=== PATIENT | male | born 1955 | race Caucasian/White ===

== ENCOUNTER 2021-09-03 11:10 | Day surgery (SDC) | payer BC, MEDICARE ==
[2021-09-01 13:56] VITALS: BMI 38.7
[2021-09-03] MEDS ORDERED: LACTATED RINGERS 1,000 ML IV SCH (11:24)
[2021-09-03 11:44] VITALS: TEMP 97.9
[2021-09-03 11:48] LABS: Glucose,Whole Blood 102 mg/dL (75-99)
[2021-09-03] MEDS ORDERED: PROPOFOL 10 MG/ML 20 ML VIAL IV ONE (12:09)
[2021-09-03 12:43] VITALS: RESP 18
--- NOTE | 2021-09-03 12:43 | PCN ---
PROCEDURE NOTE DATE OF SERVICE: 09/03/2021 PROCEDURE: Bone marrow aspirate and biopsy. INDICATION: Persistent monocytosis. PROCEDURE DESCRIPTION: After obtaining consent from the patient, the procedure was performed in the endoscopy suite under anesthesia performed by the anesthesia team. The patient put in left lateral decubitus position. The right posterior iliac crest was localized. Skin was cleansed with ChloraPrep. All sterile procedures were followed. Two mL of 2% Xylocaine was used for local anesthetic. Monoject needle was inserted Two mL of aspirate and about 1.5 cm core biopsy was obtained without any difficulties. Pressure was applied afterwards. There was negligible blood loss. Patient tolerated the procedure very well without any immediate complications. MMODL / IJN: [id number] /
[2021-09-03 12:49] VITALS: PULSE 84
[2021-09-03 12:50] VITALS: BP 110/72
[2021-09-03 13:52] LABS: Basophils # (A) 0.1 k/uL (0-0.2); Basophils % (A) 1 %; Eosinophils # (A) 0.3 k/uL (0-0.7); Eosinophils % (A) 4 %; HCT 45.8 % (39.0-53.0); HGB 15.8 gm/dL (13.0-17.5); Lymphocytes # (A) 2.7 k/uL (1.0-4.8); Lymphocytes % (A) 32 %; MCH 33.9 pg (25.0-35.0); MCHC 34.5 g/dL (31.0-37.0); MCV 98.4 fL (80.0-100.0); Mean Platelet Volume 8.3; Monocytes # (A) 0.6 k/uL (0-1.0); Monocytes % (A) 7 %; Neutrophils # (A) 4.7 k/uL (1.3-7.7); Neutrophils % (A) 54 %; Platelet Count 277 k/uL (150-450); RBC 4.66 m/uL (4.30-5.90); RDW 13.1 % (11.5-15.5); WBC 8.6 k/uL (3.8-10.6)
== END 2021-09-03 13:04 | disposition home or self-care (01) ==
LOC: OR 11:10
PROVIDERS: ATTEND Internal Medicine Hematology & Oncology
DX: D72.821 Monocytosis (symptomatic) (principal); E11.9 Type 2 diabetes mellitus without complications; E78.5 Hyperlipidemia, unspecified; I10 Essential (primary) hypertension; Z98.890 Other specified postprocedural states; K21.9 Gastro-esophageal reflux disease without esophagitis; Z80.1 Family history of malignant neoplasm of trachea, bronchus and lung; Z87.891 Personal history of nicotine dependence; G47.33 Obstructive sleep apnea (adult) (pediatric); Z97.2 Presence of dental prosthetic device (complete) (partial); Z79.899 Other long term (current) drug therapy; Z79.84 Long term (current) use of oral hypoglycemic drugs; Z79.82 Long term (current) use of aspirin
CPT/HCPCS: 85025; 85045; 38222; J2704

== ENCOUNTER 2021-11-08 07:24 | Observation (INO) | payer BC, MEDICARE ==
[2021-11-08] MEDS ORDERED: MECLIZINE 12.5 MG TAB PO STA (07:42)
[2021-11-08] MEDS ORDERED: METOCLOPRAMIDE 5 MG/ML 2 ML VIAL IVP STA (07:42)
--- NOTE | 2021-11-08 07:45 | ED ---
General Adult HPI - General Chief complaint: Dizziness Stated complaint: Dizziness Time Seen by Provider: 11/08/21 07:33 Source: patient, family, RN notes reviewed Mode of arrival: ambulatory Limitations: no limitations - History of Present Illness Initial comments: Patient is a pleasant 6 he 5-year-old male presenting to the emergency department with dizziness. Onset of symptoms was when he woke this morning. Symptoms were noticed when he sat up getting out of bed. Symptoms are worse with head movement and upright position. Symptoms improved with lying back and closing his eyes. Patient has had several episodes in the past, however not bad enough to see a doctor for. No confusion. No speech problems. No weakness. No sensory loss. - Related Data Home Medications Medication Instructions Recorded Confirmed Aspirin [[place] Aspirin EC] 81 mg PO DAILY 08/27/19 11/08/21 Atorvastatin [Lipitor] 20 mg PO HS 08/27/19 11/08/21 Dapagliflozin Propanediol [Farxiga] 10 mg PO DAILY 08/27/19 11/08/21 lisinopriL [Zestril] 10 mg PO HS 08/27/19 11/08/21 metFORMIN HCL [Glucophage] 1,000 mg PO BID 08/27/19 11/08/21 Liraglutide [Victoza 3-Jensen] 1.8 mg SQ HS 09/01/21 11/08/21 Cholecalciferol (Vitamin D3) 75 mcg PO DAILY 11/08/21 11/08/21 [Vitamin D3 (3000 Iu)] Ferrous Sulfate [Feosol] 325 mg PO DAILY 11/08/21 11/08/21 Vitamin B Complex 1 cap PO HS 11/08/21 11/08/21 Allergies Allergy/AdvReac Type Severity Reaction Status Date / Time No Known Allergies Allergy Verified 11/08/21 09:45 Review of Systems ROS Statement: Those systems with pertinent positive or pertinent negative responses have been documented in the HPI. ROS Other: All systems not noted in ROS Statement are negative. Constitutional: Denies: fever Eyes: Denies: eye pain ENT: Denies: ear pain Respiratory: Denies: cough Cardiovascular: Denies: chest pain Endocrine: Denies: fatigue Gastrointestinal: Denies: abdominal pain Genitourinary: Denies: dysuria Musculoskeletal: Denies: back pain Skin: Denies: rash Neurological: Reports: vertigo. Denies: headache, weakness, numbness, paresthesias, confusion Past Medical History Past Medical History: Diabetes Mellitus, Eye Disorder, GERD/Reflux, Hearing D isorder / Deafness, Hyperlipidemia, Hypertension, Sleep Apnea/CPAP/BIPAP Additional Past Medical History / Comment(s): glaucoma, NO C PAP History of Any Multi-Drug Resistant Organisms: None Reported Past Surgical History: Hernia Repair Additional Past Surgical History / Comment(s): COLONOSCOPY Past Anesthesia/Blood Transfusion Reactions: No Reported Reaction Past Psychological History: No Psychological Hx Reported Smoking Status: Former smoker Past Alcohol Use History: None Reported Past Drug Use History: None Reported - Past Family History Father Family Medical History: Cancer Additional Family Medical History / Comment(s): LUNG CANCER General Exam Limitations: no limitations General appearance: alert, in no apparent distress Head exam: Present: normocephalic Eye exam: Present: normal appearance, PERRL, EOMI. Absent: nystagmus ENT exam: Present: normal exam Neck exam: Present: normal inspection. Absent: tenderness Respiratory exam: Present: normal lung sounds bilaterally Cardiovascular Exam: Present: regular rate, normal rhythm GI/Abdominal exam: Present: soft. Absent: tenderness Extremities exam: Present: normal inspection. Absent: pedal edema Neurological exam: Present: alert, oriented X3, CN II-XII intact. Absent: motor sensory deficit Expanded Neurological exam: Present: protecting the airway Speech: Present: fluid speech Cranial nerves: EOM's Intact: Normal, Facial Sensation: Normal Sensory exam: Upper Extremity Light Touch: Normal, Lower Extremity Light Touch: Normal Motor strength exam: RUE: 5, LUE: 5, RLE: 5, LLE: 5 Eye Response: (4) open spontaneously Motor Response: (6) obeys commands Verbal Response: (5) oriented Psychiatric exam: Present: normal affect, normal mood Skin exam: Present: normal color Course Vital Signs 11/08/21 11/08/21 11/08/21 07:29 08:13 09:40 Temperature 97.5 F L Pulse Rate 78 77 77 Respiratory 18 16 18 Rate Blood Pressure 113/74 109/69 100/68 O2 Sat by Pulse 92 L 96 96 Oximetry 11/08/21 12:20 Temperature Pulse Rate 74 Respiratory 16 Rate Blood Pressure 111/75 O2 Sat by Pulse 97 Oximetry EKG Findings - EKG Comments: EKG Findings:: Sinus rhythm at 77. For screening AV block HI of 213. QRS 104. QT 380. QTC 412. Normal axis. Normal QRS. Nonspecific ST-T. Medical Decision Making - Medical Decision Making Patient reevaluated and updated. Patient was feeling somewhat better however having difficulty standing up. Case was discussed with neurology Dr. Prabhakar including CT and thought patient could value from following up with Dr. Bautista. Patient still not feeling well. Case discussed with Dr. Raymond, who will admit covering hospital observation call - Lab Data Result diagrams: 11/08/21 08:02 11/08/21 08:02 Lab Results 11/08/21 11/08/21 Range/Units 08:02 08:02 WBC 11.1 H (3.8-10.6) k/uL RBC 4.59 (4.30-5.90) m/uL Hgb 15.0 (13.0-17.5) gm/dL Hct 45.0 (39.0-53.0) % MCV 98.1 (80.0-100.0) fL MCH 32.7 (25.0-35.0) pg MCHC 33.3 (31.0-37.0) g/dL RDW 12.1 (11.5-15.5) % Plt Count 252 (150-450) k/uL MPV 7.5 Neutrophils % 71 % Lymphocytes % 19 % Monocytes % 6 % Eosinophils % 1 % Basophils % 1 % Neutrophils # 7.9 H (1.3-7.7) k/uL Lymphocytes # 2.1 (1.0-4.8) k/uL Monocytes # 0.7 (0-1.0) k/uL Eosinophils # 0.1 (0-0.7) k/uL Basophils # 0.1 (0-0.2) k/uL Sodium 139 (137-145) mmol/L Potassium 5.2 H (3.5-5.1) mmol/L Chloride 104 (98-107) mmol/L Carbon Dioxide 23 (22-30) mmol/L Anion Gap 12 mmol/L BUN 27 H (9-20) mg/dL Creatinine 0.69 (0.66-1.25) mg/dL Est GFR (CKD-EPI)AfAm >90 (>60 ml/min/1.73 sqM) Est GFR (CKD-EPI)NonAf >90 (>60 ml/min/1.73 sqM) Glucose 168 H (74-99) mg/dL Calcium 9.0 (8.4-10.2) mg/dL Total Bilirubin 1.2 (0.2-1.3) mg/dL AST 37 (17-59) U/L ALT 30 (4-49) U/L Alkaline Phosphatase 44 (38-126) U/L Total Protein 7.2 (6.3-8.2) g/dL Albumin 4.4 (3.5-5.0) g/dL - Radiology Data Radiology results: report reviewed (Computed tomography scan of the brain shows no acute intercranial abnormality. CT angios shows opacified right vertebral artery, possibly congenital. No otherwise significant acute finding.), image reviewed (Two-view chest x-ray shows no acute process.) Disposition Clinical Impression: Vertigo Disposition: ADMITTED IP TO THIS HOSP Is patient prescribed a controlled substance at d/c from ED?: No Referrals: Destinee Gant MD [Primary Care Provider] - 1-2 days Luis Enrique Rush MD [STAFF PHYSICIAN] - 1-2 days Time of Disposition: 10:54
[2021-11-08 08:25] LABS: Basophils # (A) 0.1 k/uL (0-0.2); Basophils % (A) 1 %; Eosinophils # (A) 0.1 k/uL (0-0.7); Eosinophils % (A) 1 %; Lymphocytes # (A) 2.1 k/uL (1.0-4.8); Lymphocytes % (A) 19 %; MCH 32.7 pg (25.0-35.0); MCHC 33.3 g/dL (31.0-37.0); MCV 98.1 fL (80.0-100.0); Mean Platelet Volume 7.5; Monocytes # (A) 0.7 k/uL (0-1.0); Monocytes % (A) 6 %; Neutrophils # (A) 7.9 k/uL (1.3-7.7); Neutrophils % (A) 71 %; Platelet Count 252 k/uL (150-450); RBC 4.59 m/uL (4.30-5.90); RDW 12.1 % (11.5-15.5); WBC 11.1 k/uL (3.8-10.6)
[2021-11-08 08:31] LABS: ALT 30 U/L (4-49); AST 37 U/L (17-59); African American GFR (CKD) >90 (>60 ml/min/1.73 sqM); Albumin 4.4 g/dL (3.5-5.0); Alkaline Phosphatase 44 U/L (38-126); Anion Gap 12 mmol/L; Blood Urea Nitrogen 27 mg/dL (9-20); Carbon Dioxide 23 mmol/L (22-30); Chloride 104 mmol/L (98-107); Glucose 168 mg/dL (74-99); Non-African American GFR(CKD) >90 (>60 ml/min/1.73 sqM); Sodium 139 mmol/L (137-145); Total Bilirubin 1.2 mg/dL (0.2-1.3); Total Protein 7.2 g/dL (6.3-8.2)
[2021-11-08 08:42] LABS: Potassium 5.2 mmol/L (3.5-5.1)
--- NOTE | 2021-11-08 08:43 | XR ---
EXAMINATION TYPE: XR chest 2V DATE OF EXAM: 11/08/2021 COMPARISON: NONE HISTORY: Altered mental status, dizziness TECHNIQUE: Frontal and lateral views of the chest are obtained. FINDINGS: Left mid to lower lung zone linear atelectasis. Grossly unremarkable lungs otherwise. No sizable pleu ral effusion or definite pneumothorax. Slightly increased cardiac transverse diameter with wide mediastinum, possibly related to the patient 's AP position. No gross aggressive bone lesion. IMPRESSION: No gross acute pulmonary abnormality identified.
--- NOTE | 2021-11-08 09:39 | CT ---
EXAMINATION TYPE: CT brain wo con DATE OF EXAM: 11/08/2021 COMPARISON: None available HISTORY: weakness, ams CT DLP: 1118.2 mGycm Automated exposure control for dose reduction was used. TECHNIQUE: CT scan of the brain is performed without IV contrast administration. FINDINGS: No acute intracranial hemorrhage. No gross acute cortical infarct. No midline shift, herniation or ve ntriculomegaly. Unremarkable garcia-white matter differentiation, basal cisterns, sella and CP angles. No gross space-o ccupying lesion, vasogenic edema or mass effect. Unremarkable orbits. Mucosal thickening of the maxillary sinuses. Hypopneumatized right mastoid air c ells. Unremarkable calvarial bones. Atlantooccipital assimilation. IMPRESSION: No acute intracranial abnormality or gross space-occupying lesion by this nonenhanced CT scan. Incide ntal findings as described above.
--- NOTE | 2021-11-08 10:20 | CT ---
EXAMINATION TYPE: CT angio head neck DATE OF EXAM: 11/08/2021 HISTORY: weakness, ams COMPARISON: Nonenhanced brain CT performed earlier same day CT DLP: 636.6 mGycm. Automated Exposure Control for Dose Reduction was Utilized. TECHNIQUE: CTA scan of the head and neck is performed with IV Contrast, patient injected with 65cc m L of Isovue 370, axial images are obtained, coronal and sagittal reformatted images are reviewed. 3D reconstructed images are created on an independent workstation and reviewed. 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 Minimal arterial atherosclerotic calcification. Tortuous carotid arteries more on t he right side. Reduced caliber of the basilar artery patent. Otherwise normal caliber and enhancement of the neck arteries and intracranial arteries without significant stenosis, occlusion, dissection, aneurysm or AV malformation. Patent major intracranial venous sinuses. Other: No intracranial abnormal enhancement. Mucosal thickening of the maxillary sinuses. Degenerativ e changes of the cervical spine. Atlantooccipital assimilation. 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 No signific ant arterial stenosis, occlusion or dissection seen in the head or the neck arteries otherwise. Incid ental findings as described above.
[2021-11-08] MEDS ORDERED: SCOPOLAMINE 1 MG/72 HR PATCH TRANSDERM STA (10:22)
[2021-11-08] MEDS ORDERED: DIAZEPAM 5 MG/ML 2 ML INJ IVP STA (10:24)
[2021-11-08] MEDS ORDERED: NALOXONE 0.4 MG/ML 1 ML VIAL IV PRN (13:32)
[2021-11-08] MEDS ORDERED: DIAZEPAM 5 MG/ML 2 ML INJ IVP PRN (13:34)
--- NOTE | 2021-11-08 14:50 | P.CNNES ---
History of Present Illness Consult date: 11/08/21 Requesting physician: Zacarias Fung Reason for Consult: veritgo History of Present Illness: This is a 65-year-old gentleman with history of diabetes mellitus, chronic tinnitus bilaterally ears, previous history of benign positional vertigo presented emergency department on 11/08/2021 because of dizziness. He stated that he woke up today around 6 AM and he noticed that he had he was extremely dizzy getting up. His last normal was about 10 PM last night. He feels that the room is spinning whenever he has extreme positions of looking up down or moving head [id number]. He also had episodes of nausea and vomiting today. He denies any visual disturbance. Denies any focal weakness or numbness. Denies any recent sickness. He has chronic tinnitus of both ears and had exposure to loud noises in the past. He denies of any recent head trauma. Patient is on aspirin 81 mg daily. Currently after being in the ED feels somewhat better now then on initial presentation denies any resolution of his symptoms. Some of the workup in the hospital consisted of: CT of the head is reported as no acute intracranial abnormality or gross space occupying lesion by this nonenhaced has CT scan. I personally reviewed the CT of the head and I agree with the repot. 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 No significant arterial stenosis, occlusion or dissection seen in the head or the neck arteries. Review of Systems Review of system: The 12 point system was reviewed and apparent positive and negative per HPI. Past Medical History Past Medical History: Diabetes Mellitus, Eye Disorder, GERD/Reflux, Hearing Disorder / Deafness, Hyperlipidemia, Hypertension, Sleep Apnea/CPAP/BIPAP Additional Past Medical History / Comment(s): glaucoma, NO C PAP History of Any Multi-Drug Resistant Organisms: None Reported Past Surgical History: Hernia Repair Additional Past Surgical History / Comment(s): COLONOSCOPY Past Anesthesia/Blood Transfusion Reactions: No Reported Reaction Past Psychological History: No Psychological Hx Reported Smoking Status: Former smoker Past Alcohol Use History: None Reported Past Drug Use History: None Reported - Past Family History Father Family Medical History: Cancer Additional Family Medical History / Comment(s): LUNG CANCER Medications and Allergies Home Medications Medication Instructions Recorded Confirmed Type Aspirin [[place] Aspirin EC] 81 mg PO DAILY 08/27/19 11/08/21 History Atorvastatin [Lipitor] 20 mg PO HS 08/27/19 11/08/21 History Dapagliflozin Propanediol [Farxiga] 10 mg PO DAILY 08/27/19 11/08/21 History lisinopriL [Zestril] 10 mg PO HS 08/27/19 11/08/21 History metFORMIN HCL [Glucophage] 1,000 mg PO BID 08/27/19 11/08/21 History Liraglutide [Victoza 3-Jensen] 1.8 mg SQ HS 09/01/21 11/08/21 History Cholecalciferol (Vitamin D3) 75 mcg PO DAILY 11/08/21 11/08/21 History [Vitamin D3 (3000 Iu)] Ferrous Sulfate [Feosol] 325 mg PO DAILY 11/08/21 11/08/21 History Vitamin B Complex 1 cap PO HS 11/08/21 11/08/21 History Allergies Allergy/AdvReac Type Severity Reaction Status Date / Time No Known Allergies Allergy Verified 11/08/21 09:45 Physical Examination - Vital Signs Vital Signs: Vital Signs Temp Pulse Resp BP Pulse Ox 11/08/21 13:41 80 16 97/65 97 11/08/21 12:20 74 16 111/75 97 11/08/21 09:40 77 18 100/68 96 11/08/21 08:13 77 16 109/69 96 11/08/21 07:29 97.5 F L 78 18 113/74 92 L Intake and Output 11/07/21 11/08/21 11/08/21 22:59 06:59 14:59 Other: Weight 108.862 kg GENERAL: The patient is lying in bed and is not in acute distress. CHEST: The heart rate is regular rate rhythm. No murmurs to auscultation. LUNG: Clear to auscultation bilaterally no wheezing noted throughout. Not labored breathing. ABDOMEN/GI: Bowel sounds present in all 4 quadrants. No tenderness to palpation throughout. NEUROLOGICAL: Higher mental function: The patient is awake, alert, oriented to self, place and time. Patient is following commands. No aphasia and no neglect. Cranial nerves: The pupils are round, equal and reactive to light and accommodation. Visual gaming are full to confrontation throughout. Extraocular movement is intact no nystagmus is noted. Facial sensation is normal to touch throughout. The facial strength is normal throughout. Hearing is normal bilaterally to hand rub. Tongue is midline and moved [id number] without any difficulty. No dysarthria is noted. Shoulder shrug is normal bilaterally. Motor: Gait is attempted but stopped since patient was feeling unsteady walking. The strength is 5 over 5 throughout. Normal tone and bulk. Cerebellum: Normal finger to nose heel to [place]o bilaterally. Sensation: Sensation is normal to touch throughout. Reflexes (right/left): 2+ throughout. Plantars are downgoing bilaterally. Results - Laboratory Findings CBC and BMP: 11/08/21 08:02 11/08/21 08:02 Abnormal Lab Findings: Abnormal Labs 11/08/21 11/08/21 08:02 08:02 WBC 11.1 H Neutrophils # 7.9 H Potassium 5.2 H BUN 27 H Glucose 168 H Assessment and Plan Assessment: Acute vertigo and it seems more benign positional vertigo--symptoms improving compared to earlier History of tinnitus of both ears and was exposed to loud exposures History of benign positional vertigo in the past Diabetes mellitus Plan: In the ED the patient was given Valium 4 mg once, Reglan 10 mg once Antivert 50 mg once and IV fluids. He was started on Reglan 10 mg every 6 hours, meclizine 25 mg 1 tablet 4 times a day scheduled, Valium 5 mg every 6 hours as needed and scopolamine patch by the ED team. 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 Rush) within 2-3 weeks. Since the patient has recurrent episodes of vertigo recommended the patient follow up with ENT as an outpatient Defer the rest of the medical management the primary team Thank you for consultation Tremaine Go M.D. Neuro-hospitalist Time with Patient: Greater than 30
[2021-11-08] MEDS: ASPIRIN 81 MG PO SCH (15:29)
[2021-11-08] MEDS: SODIUM CHLORIDE 0.9% 1,000 ML IV SCH (15:29)
--- NOTE | 2021-11-08 15:48 | P.HPIM ---
History of Present Illness H&P Date: 11/08/21 History of Presenting Illness: Patient is a 65-year-old male with a past medical history of hypertension, hyperlipidemia, and type 2 diabetes mellitus. He presented to the emergency department with a chief complaint of dizziness. Patient reported these symptoms began shortly after awakening this morning and sitting up in bed. Patient reports symptoms improved with lying very still and not moving but resumed again upon sitting up or with any head movement. Patient reports having 3 previous episodes similar to this in the past, but denies being evaluated by medical provider during previous events. Patient reports in addition to the dizziness he experienced significant nausea, vomiting, and diaphoresis throughout this episode. However he denies having any changes in vision, changes in hearing or tinnitus, dysphagia or difficulties with speech or memory, chest pain or palpitations, shortness of breath, or experiencing any numbness/tingling/weakness in his extremities. In the emergency department, patient underwent full evaluation. He was found to have mild leukocytosis with WBC count of 11.1, hyperkalemia with potassium of 5.2, prerenal azotemia with BUN of 27, and hyperglycemia with glucose of 168. CT brain was completed and negative for acute intercranial process. CTA head and neck revealing markedly 10 she waited opacified caliber of the right vertebral artery, possibly congenital with no significant arterial stenosis, occlusion, or dissection seen in the head or neck arteries. Negative for acute cardiopulmonary process. EKG showing normal sinus rhythm at [address] elevation in leads II and aVF. Patient has been admitted under our services with consultation to neurology. Review of systems: Pertinent positives and negatives as discussed in HPI, a complete review of systems was performed and all other systems are negative. Physical exam: Vital signs reviewed and stable. General: Nontoxic, no distress and appears stated age. Derm: Skin warm and dry, normal coloration for ethnicity. Head: Atraumatic, normocephalic and symmetric. Eyes: EOMs intact, no lid lag, and anicteric sclera Mouth: no lip lesions, mucus membranes moist Cardiovascular: regular rate and rhythm with normal S1S2, no murmur, positive posterior tibial pulses bilaterally, and cap refill < 2 seconds. Lungs: Respirations even, regular, and unlabored on room air. Lungs CTA bilaterally, no rhonchi, no rales, no wheezing, and no accessory muscle usage. Abdominal: soft, nontender to palpation, no guarding, no appreciable organomegaly Ext: ROM intact. No gross muscle atrophy, no edema, no contractures Neuro: Speech clear, face symmetrical and CN II-XII grossly intact with no noted focal neuro deficits Psych: Alert and oriented to person, place, time, and situation. Appropriate and pleasant affect. Assessment and Plan of Care: Dizziness/lightheadedness, likely vertigo -Hold Farxiga at this time as potential adverse reaction can be orthostatic hypotension -Telemetry monitoring -Orthostatic vitals -Neuro checks -Consult neurology, appreciate recommendations -Echocardiogram -Fall precautions -Supportive and symptomatic care, gentle fluid hydration, Reglan as needed for nausea/vomiting, meclizine 25 mg 4 times daily, and Valium 5 mg IVP every 6 hours as needed for dizziness/lightheadedness. Hypertension Monitor vital signs and continue daily medication regimen with lisinopril. Orthostatic vitals to be obtained Hyperlipidemia Continue daily medication regimen with atorvastatin 20 mg nightly. Type II [id number] diabetes mellitus Glycemic protocol with NovoLog sliding scale. We will hold Farxiga, Victoza, and metformin at this time. The patient is admitted with an anticipated less than 2 midnight stay for e valuation of dizziness CODE STATUS: Full code DVT prophylaxis: Heparin Discussed with: Patient and RN Anticipated discharge date: Likely tomorrow morning Anticipated discharge place: Home A total of 41 minutes was spent on the care of this complex patient more than 50% of the time was spent in counseling and care coordination. I reviewed the documentation as provided by the [facility] above, who is the original author of this note. I agree with the documented assessment and plan, with the following changes: none Past Medical History Past Medical History: Diabetes Mellitus, Eye Disorder, GERD/Reflux, Hearing Disorder / Deafness, Hyperlipidemia, Hypertension, Sleep Apnea/CPAP/BIPAP Additional Past Medical History / Comment(s): glaucoma, NO C PAP History of Any Multi-Drug Resistant Organisms: None Reported Past Surgical History: Hernia Repair Additional Past Surgical History / Comment(s): COLONOSCOPY Past Anesthesia/Blood Transfusion Reactions: No Reported Reaction Past Psychological History: No Psychological Hx Reported Smoking Status: Former smoker Past Alcohol Use History: None Reported Past Drug Use History: None Reported - Past Family History Father Family Medical History: Cancer Additional Family Medical History / Comment(s): LUNG CANCER Mother Family Medical History: Congestive Heart Failure (CHF), Diabetes Mellitus Medications and Allergies Home Medications Medication Instructions Recorded Confirmed Type Aspirin [[place] Aspirin EC] 81 mg PO DAILY 08/27/19 11/08/21 History Atorvastatin [Lipitor] 20 mg PO HS 08/27/19 11/08/21 History Dapagliflozin Propanediol [Farxiga] 10 mg PO DAILY 08/27/19 11/08/21 History lisinopriL [Zestril] 10 mg PO HS 08/27/19 11/08/21 History metFORMIN HCL [Glucophage] 1,000 mg PO BID 08/27/19 11/08/21 History Liraglutide [Victoza 3-Jensen] 1.8 mg SQ HS 09/01/21 11/08/21 History Cholecalciferol (Vitamin D3) 75 mcg PO DAILY 11/08/21 11/08/21 History [Vitamin D3 (3000 Iu)] Ferrous Sulfate [Feosol] 325 mg PO DAILY 11/08/21 11/08/21 History Vitamin B Complex 1 cap PO HS 11/08/21 11/08/21 History Allergies Allergy/AdvReac Type Severity Reaction Status Date / Time No Known Allergies Allergy Verified 11/08/21 09:45 Physical Exam Osteopathic Statement: *. No significant issues noted on an osteopathic structural exam other than those noted in the History and Physical/Consult. Vitals: Vital Signs Temp Pulse Resp BP Pulse Ox 11/08/21 13:41 80 16 97/65 97 11/08/21 12:20 74 16 111/75 97 11/08/21 09:40 77 18 100/68 96 11/08/21 08:13 77 16 109/69 96 11/08/21 07:29 97.5 F L 78 18 113/74 92 L Intake and Output 11/07/21 11/08/21 11/08/21 22:59 06:59 14:59 Other: Weight 108.862 kg Results CBC & Chem 7: 11/08/21 08:02 11/08/21 08:02 Labs: Abnormal Lab Results - Last 24 Hours (Table) 11/08/21 11/08/21 Range/Units 08:02 08:02 WBC 11.1 H (3.8-10.6) k/uL Neutrophils # 7.9 H (1.3-7.7) k/uL Potassium 5.2 H (3.5-5.1) mmol/L BUN 27 H (9-20) mg/dL Glucose 168 H (74-99) mg/dL
[2021-11-08] MEDS: HEPARIN SODIUM,PORCINE/PF 5,000 UNIT/0.5 ML SYRINGE SQ SCH (19:03)
[2021-11-08] MEDS: MECLIZINE 25 MG TAB PO SCH ×2 (19:04→21:09)
[2021-11-08] MEDS: METOCLOPRAMIDE 5 MG/ML 2 ML VIAL IVP SCH (19:04)
[2021-11-08] MEDS ORDERED: ATORVASTATIN 20 MG TAB PO SCH (21:00)
[2021-11-08] MEDS ORDERED: MULTIVITAMINS, THERA 1 EACH TAB PO SCH (21:00)
[2021-11-08] MEDS ORDERED: lisinopriL 10 MG TAB PO SCH (21:00)
[2021-11-09] MEDS: HEPARIN SODIUM,PORCINE/PF 5,000 UNIT/0.5 ML SYRINGE SQ SCH ×2 (00:02→08:54)
[2021-11-09] MEDS: METOCLOPRAMIDE 5 MG/ML 2 ML VIAL IVP SCH ×2 (00:02→05:58)
[2021-11-09] MEDS: SODIUM CHLORIDE 0.9% 1,000 ML IV SCH (03:11)
[2021-11-09 08:25] VITALS: BP 109/68; PULSE 85; RESP 16; TEMP 97.6
[2021-11-09] MEDS: ASPIRIN 81 MG PO SCH (08:51)
[2021-11-09] MEDS: MECLIZINE 25 MG TAB PO SCH (08:51)
[2021-11-09] MEDS ORDERED: CHOLECALCIFEROL 25 MCG (1000 IU) TABLET PO SCH (09:00)
[2021-11-09] MEDS ORDERED: FERROUS SULFATE 325 MG TAB PO SCH (09:00)
--- NOTE | 2021-11-09 09:00 | P.PN ---
Subjective Progress Note Date: 11/09/21 The patient is seen at bedside and feels his dizziness is improving compared to initial presentation but is not resolved. He is walking more steady. Denies any further nausea or vomiting. Denies any other neurological issues. Objective - Vital Signs Vital signs: Vital Signs Temp 97.6 F 11/09/21 07:00 Pulse 85 11/09/21 07:00 Resp 16 11/09/21 07:00 BP 109/68 11/09/21 07:00 Pulse Ox 93 L 11/09/21 07:00 Intake & Output 11/08/21 11/09/21 11/09/21 18:59 06:59 18:59 Intake Total 118 Balance 118 Weight 108.862 kg 110.1 kg Intake: Oral 118 Other: # Voids 2 - Exam GENERAL: The patient is sitting in a recliner chair and is not in acute distress. NEUROLOGICAL: Higher mental function: The patient is awake, alert, oriented to self, place and time. Patient is following commands. No aphasia and no neglect. Cranial nerves: The pupils are round, equal and reactive to light and accommodation. Visual gaming are full to confrontation throughout. Extraocular movement is intact no nystagmus is noted. Facial sensation is normal to touch throughout. The facial strength is normal throughout. Hearing is normal bilaterally to hand rub. Tongue is midline and moved [id number] without any difficulty. No dysarthria is noted. Shoulder shrug is normal bilaterally. Motor: Gait is deferred. The strength is 5 over 5 throughout. Normal tone and bulk. Cerebellum: Normal finger to nose heel to arroyo bilaterally. Sensation: Sensation is normal to touch throughout. Reflexes (right/left): 2+ throughout. Plantars are downgoing bilaterally. - Labs CBC & Chem 7: 11/08/21 08:02 11/08/21 08:02 Assessment and Plan Assessment: Acute vertigo and it seems more benign positional vertigo--symptoms improving compared to initial presentation History of tinnitus of both ears and was exposed to loud exposures History of benign positional vertigo in the past Diabetes mellitus Plan: He was started on Reglan 10 mg every 6 hours, meclizine 25 mg 1 tablet 4 times a day scheduled, Valium 5 mg every 6 hours as needed and scopolamine patch by the ED team. Continue neuro checks Patient was notified to perform [facility]. 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 Luis Enrique Rush) within 2-3 weeks. Since the patient has recurrent episodes of vertigo recommended the patient follow up with ENT as an outpatient Defer the rest of the medical management the primary team The plan is discussed with the patient and his nurse. Patient is clear for discharge from neurological perspective. Tremaine Go M.D. Neuro-hospitalist Time with Patient: Less than 30
--- NOTE | 2021-11-09 10:41 | CA ---
Transthoracic Echo Report Name: Jackson Domínguez Age: 65 Gender: M : 1955 Exam Date: 11/09/2021 08:06 Exam Location: [facility] Ht (in): 65 Wt (lb): 242 Ordering Physician: Waldemar Perera Attending/Referring Phys: Ophthalmic Photographer Jenifer Currie RDCS Procedure CPT: Indications: Dizziness/lightheadedness Cardiac Hx: Technical Quality: Contrast 1: Lumason Total Dose (mL): 1 Contrast 2: Total Dose (mL): MEASUREMENTS (Male / Female) Normal Values 2D ECHO LV Diastolic Diameter PLAX 3.5 cm 4.2 - 5.9 / 3.9 - 5.3 cm LV Systolic Diameter PLAX 2.0 cm IVS Diastolic Thickness 0.9 cm 0.6 - 1.0 / 0.6 - 0.9 cm LVPW Diastolic Thickness 1.3 cm 0.6 - 1.0 / 0.6 - 0.9 cm LV Relative Wall Thickness 0.6 M-MODE Aortic Root Diameter MM 3.9 cm LA Systolic Diameter MM 2.5 cm LA Ao Ratio MM 0.6 MV E Point Septal Separation 1.3 cm AV Cusp Separation MM 2.2 cm DOPPLER AV Peak Velocity 124.9 cm/s AV Peak Gradient 6.2 mmHg MV Area PHT 4.4 cm??? MR Peak Velocity 114.6 cm/s MR Peak Gradient 5.3 mmHg Mitral E Point Velocity 106.5 cm/s Mitral A Point Velocity 96.0 cm/s Mitral E to A Ratio 1.1 MV Deceleration Time 171.6 ms TR Peak Velocity 87.8 cm/s TR Peak Gradient 3.1 mmHg Right Ventricular Systolic Press 8.1 mmHg FINDINGS Left Ventricle Normal Left ventricular size, wall thickness, systolic function with no obvious regional wall motion abnormalities. Normal Left ventricular diastolic filling pattern. Left ventricular ejection fraction is estimated at 55-60_ %. Right Ventricle The right ventricle is normal in size and function. Right Atrium The right atrium is normal in size. Left Atrium The left atrium is normal in size. Mitral Valve Structurally normal mitral valve without significant stenosis or prolapse. There is a trace of mitral regurgitation. Aortic Valve Structurally normal aortic valve without significant sclerosis or stenosis. There is no aortic regurgitation. Tricuspid Valve Structurally normal tricuspid valve without significant stenosis. Pulmonary artery systolic pressure is normal. Trace tricuspid regurgitation. Pulmonic Valve Structurally normal pulmonic valve without significant stenosis. There is no pulmonic regurgitation. Pericardium Normal pericardium without effusion. Aorta Normal aortic root dimension. CONCLUSIONS Normal LV systolic function Normal PA pressure Previewed by: Dr. Ar Robin MD (Electronically Signed) Final Date: 09 Nov 2021 10:40
--- NOTE | 2021-11-09 11:03 | P.DS ---
Providers Date of admission: 11/08/21 13:32 Expected date of discharge: 11/09/21 Attending physician: Riddhi Bailon MD Consults: 11/08/21 13:32 Consult Physician Routine Consulting Provider: Tremaine Go Consult Reason/Comments: vertigo Do you want consulting provider notified?: Yes Primary care physician: [facility] Course: Discharge Diagnosis: Vertigo, patient sent home with prescription for PRN meclizine and Reglan. It is recommended he follow up outpatient with ENT secondary to recurrent episodes of vertigo. Small caliber of right vertebral artery, recommend follow up outpatient with interventional neurology, Dr. Luis Enrique Rush in 2-3 weeks. Hyperkalemia, mild hyperkalemia with potassium of 5.2 we will discontinue lisinopril and start patient on Norvasc in replacement to prevent further episodes and/or worsening of hyperkalemia Hypertension, lisinopril discontinued secondary to hyperkalemia patient started on Norvasc 5 mg daily. Hyperlipidemia, Continue daily medication regimen with atorvastatin 20 mg nightly. Type II thb-wzciach-lzjzpcruh diabetes mellitus continue daily medication management with Farxiga, Victoza, and metformin at this time. Hospital Course: Patient is a 65-year-old male with a past medical history of hypertension, hyperlipidemia, and type 2 diabetes mellitus. He presented to the emergency department with a chief complaint of dizziness. Patient reported these symptoms began shortly after awakening this morning and sitting up in bed. Patient reports symptoms improved with lying very still and not moving but resumed again upon sitting up or with any head movement. Patient reports having 3 previous episodes similar to this in the past, but denies being evaluated by medical provider during previous events. Patient reports in addition to the dizziness he experienced significant nausea, vomiting, and diaphoresis throughout this episode. However he denies having any changes in vision, changes in hearing or tinnitus, dysphagia or difficulties with speech or memory, chest pain or palpitations, shortness of breath, or experiencing any numbness/tingling/weakness in his extremities. In the emergency department, patient underwent full evaluation. He was found to have mild leukocytosis with WBC count of 11.1, hyperkalemia with potassium of 5.2, prerenal azotemia with BUN of 27, and hyperglycemia with glucose of 168. CT brain was completed and negative for acute intercranial process. CTA head and neck revealing markedly attenuated opacified caliber of the right vertebral artery, possibly congenital with no significant arterial stenosis, occlusion, or dissection seen in the head or neck arteries. Negative for acute cardiopulmonary process. EKG showing normal sinus rhythm at [address] elevation in leads II and aVF. Patient was admitted under our services with consultation to neurology. Patient was given IV fluid hydration and started on Valium, meclizine, and Reglan. Patient reports dizziness/lightheadedness has resolved at this time. Orthostatic vitals negative for orthostatic hypotension. Echocardiogram completed revealing EF of 55-60% with no noted valvular abnormalities. Patient is medically stable at this time. It is recommended for patient to follow up outpatient with interventional neurology, Dr. Luis Enrique Rush in 2-3 weeks regarding the small caliber of his right vertebral artery and to follow up outpatient with ENT secondary to recurrent episodes of vertigo. Physical exam: Vital signs reviewed and stable. General: Nontoxic, no distress and appears stated age. Derm: Skin warm and dry, normal coloration for ethnicity. Head: Atraumatic, normocephalic and symmetric. Eyes: EOMs intact, no lid lag, and anicteric sclera Mouth: no lip lesions, mucus membranes moist Cardiovascular: regular rate and rhythm with normal S1S2, no murmur, positive posterior tibial pulses bilaterally, and cap refill < 2 seconds. Lungs: Respirations even, regular, and unlabored on room air. Lungs CTA bilaterally, no rhonchi, no rales, no wheezing, and no accessory muscle usage. Abdominal: soft, nontender to palpation, no guarding, no appreciable organomegaly Ext: ROM intact. No gross muscle atrophy, no edema, no contractures Neuro: Speech clear, face symmetrical and CN II-XII grossly intact with no noted focal neuro deficits Psych: Alert and oriented to person, place, time, and situation. Appropriate and pleasant affect. A total of 37 minutes of time were spent preparing this complex discharge summary. Pt was discharged on 11/09/21 at 10:53 AM. I reviewed the documentation as provided by the [facility] above, who is the original author of this note. I agree with the documented assessment and plan, with the following changes: none Patient Condition at Discharge: Stable Plan - Discharge Summary Discharge Rx Participant: No New Discharge Prescriptions: New Meclizine [Antivert] 25 mg PO QID #60 tab Ondansetron Odt [Zofran Odt] 4 mg PO Q8HR PRN #28 tab PRN Reason: Nausea amLODIPine [Norvasc] 5 mg PO DAILY 30 Days #30 tab Continue Atorvastatin [Lipitor] 20 mg PO HS metFORMIN HCL [Glucophage] 1,000 mg PO BID Dapagliflozin Propanediol [Farxiga] 10 mg PO DAILY Aspirin [[place] Aspirin EC] 81 mg PO DAILY Vitamin B Complex 1 cap PO HS Ferrous Sulfate [Iron (65 MG Elemental)] 325 mg PO DAILY Cholecalciferol (Vitamin D3) [Vitamin D3 (3000 Iu)] 75 mcg PO DAILY Liraglutide [Victoza 3-Jensen] 1.8 mg SQ HS Discontinued lisinopriL [Zestril] 10 mg PO HS Discharge Medication List Aspirin [[place] Aspirin EC] 81 mg PO DAILY 08/27/19 [History] Atorvastatin [Lipitor] 20 mg PO HS 08/27/19 [History] Dapagliflozin Propanediol [Farxiga] 10 mg PO DAILY 08/27/19 [History] metFORMIN HCL [Glucophage] 1,000 mg PO BID 08/27/19 [History] Liraglutide [Victoza 3-Jensen] 1.8 mg SQ HS 09/01/21 [History] Cholecalciferol (Vitamin D3) [Vitamin D3 (3000 Iu)] 75 mcg PO DAILY 11/08/21 [History] Ferrous Sulfate [Iron (65 MG Elemental)] 325 mg PO DAILY 11/08/21 [History] Vitamin B Complex 1 cap PO HS 11/08/21 [History] Meclizine [Antivert] 25 mg PO QID #60 tab 11/09/21 [Rx] Ondansetron Odt [Zofran Odt] 4 mg PO Q8HR PRN #28 tab 11/09/21 [Rx] amLODIPine [Norvasc] 5 mg PO DAILY 30 Days #30 tab 11/09/21 [Rx] Follow up Appointment(s)/Referral(s): Luis Enrique Rush MD [STAFF PHYSICIAN] - 2 Weeks Destinee Gant MD [Primary Care Provider] - 1-2 days Lionel Winter MD [STAFF PHYSICIAN] - 1 Week Ar Robin MD [STAFF PHYSICIAN] - As Needed Patient Instructions/Handouts: Vertigo (DC) Activity/Diet/Wound Care/Special Instructions: Activity: As tolerated. Take breaks as needed. Diet: Heart healthy and carb consistent diet. Avoid salts, or foods with hidden salts such as canned or boxed foods and frozen dinners. Extra salt makes your heart work harder and traps the fluid in your body for longer. Special Instructions: Take all of your medications as directed and remember to keep all of your doctor's appointments and follow-up as needed. 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 Luis Enrique Rush) within 2-3 weeks. Since you have had recurrent episodes of vertigo, it is also highly recommended that you follow up with ENT as an outpatient. Also your blood pressure medication, lisinopril has been discontinued secondary to episode of hyperkalemia. You have been started on Norvasc in replacement of lisinopril and recommend daily blood pressure checks and documenting in log/journal to bring with you to your next doctor's appointment to ensure further adjustments of medication can be successfully made as needed. Thank you for allowing us to participate in your care, it was truly a pleasure having you for our patient!!! Discharge Disposition: HOME SELF-CARE
== END 2021-11-09 11:56 | disposition home or self-care (01) ==
LOC: EC 07:24 → 6NMEDSUR 13:32
PROVIDERS: ADMIT Internal Medicine; ATTEND Internal Medicine
DX: R42 Dizziness and giddiness (principal); E87.5 Hyperkalemia; I10 Essential (primary) hypertension; E78.5 Hyperlipidemia, unspecified; E11.65 Type 2 diabetes mellitus with hyperglycemia; R11.2 Nausea with vomiting, unspecified; R61 Generalized hyperhidrosis; D72.829 Elevated white blood cell count, unspecified; R79.89 Other specified abnormal findings of blood chemistry; H91.90 Unspecified hearing loss, unspecified ear; G47.30 Sleep apnea, unspecified; H40.9 Unspecified glaucoma; K21.9 Gastro-esophageal reflux disease without esophagitis; E11.9 Type 2 diabetes mellitus without complications; H93.13 Tinnitus, bilateral; Z71.9 Counseling, unspecified; Z87.891 Personal history of nicotine dependence; Z79.899 Other long term (current) drug therapy; Z79.84 Long term (current) use of oral hypoglycemic drugs; Z79.82 Long term (current) use of aspirin; Z80.1 Family history of malignant neoplasm of trachea, bronchus and lung; Z83.3 Family history of diabetes mellitus; Z82.49 Family history of ischemic heart disease and other diseases of the circulatory system
CPT/HCPCS: 96376 ×2; 96361 ×3; 96374; 96375; 99285; 36415; 93005; 93306; 97161; 97165; 80053; 85025; 71046; 70496; 70450; 70498; G0378 ×2; J2765 ×2; J3360; Q9950; Q9967